=== PATIENT | female | born 1980 | race African-American/Black ===

== ENCOUNTER 2017-02-08 13:06 | Emergency (ER) | payer OTHER ==
[2017-02-08 13:21] VITALS: BP 142/92; PULSE 95; TEMP 98; BMI 33.2
--- NOTE | 2017-02-08 15:04 | PDOC ---
History of Present Illness <Jeovanny Kendall - Last Filed: 02/08/17 15:04> - General History Source: Patient Exam Limitations: No Limitations - History of Present Illness Initial Comments: 02/08/17 16:14 The patient is a 36 year old approximately 19 weeks female, with a significant past medical history of hypertension and fibroids, who presents to the emergency department complaining of elevated blood pressure since earlier this afternoon. Patient states she had been feeling dizzy since the beginning of the week. The patient reports she was at work and began to feel diaphoretic and as if her hearing was foggy. Patient reports this prompted her to ask one of the nurses at her job to take her blood pressure. At this time, the patients bp was 180/110. Patient reports that her GATE SERVICES SUPERVISOR told her to present to the ED if the systolic was over 150. The patient reports some nausea , but denies any abdominal pain or cramping, vaginal discharge, dysuria, hematuria, frequency, or urgency. The patient reports she is compliant with her blood pressure medications. The patient reports occasional palpitations and shortness of breath, but denies chest pain. The patient denies any recent travel or sick contacts. Allergies: NKDA Past Surgical History: None reported Social History: Social smoker. No ETOH or drug use. Family History: Father: Hypertension, Diabetes, [place], CVA; Mother: Cancer GATE SERVICES SUPERVISOR: Dr. Worley Perinatologist: Dr. Shoemaker <Robert Bourne - Last Filed: 02/08/17 16:46> - General Chief Complaint: Blood Pressure Problem Stated Complaint: BLOOD PRESSURE PROBLEM (17 WEEKS) Time Seen by Provider: 02/08/17 14:53 Past History - Past Medical History Disorders: Yes (fibroids) HTN: Yes - Psycho/Social/Smoking Cessation Hx Anxiety: No Suicidal Ideation: No Smoking History: Current some day smoker Have you smoked in the past 12 months: Yes Number of Cigarettes Smoked Daily: 1 Information on smoking cessation initiated: No Hx Alcohol Use: No Drug/Substance Use Hx: No Substance Use Type: Alcohol <Jeovanny Kendall - Last Filed: 02/08/17 15:04> <Robert Bourne - Last Filed: 02/08/17 16:46> - Past Medical History Allergies/Adverse Reactions: Allergies Allergy/AdvReac Type Severity Reaction Status Date / Time No Known Allergies Allergy Verified 02/08/17 13:21 Home Medications: Ambulatory Orders No Home Medications 0 mg PO DAILY 02/06/14 Labetalol HCl [Normodyne -] 200 mg PO BID #60 tablet 02/08/17 Review of Systems - Review of Systems Able to Perform ROS?: Yes Comments:: 02/08/17 16:14 GENERAL/CONSTITUTIONAL:Yes: +diaphoresis. No fever or chills. No weakness. HEAD, EYES, EARS, NOSE AND THROAT: Yes:+Foggy hearing. No change in vision. No ear pain or discharge. No sore throat. CARDIOVASCULAR: Yes:palpitations, +shortness of breath. No chest pain. RESPIRATORY: No cough, wheezing, or hemoptysis. GASTROINTESTINAL: Yes: +Nausea. No vomiting, diarrhea or constipation. GENITOURINARY: No dysuria, frequency, or change in urination. MUSCULOSKELETAL: No joint or muscle swelling or pain. No neck or back pain. SKIN: No rash NEUROLOGIC: Yes: +Headache, +dizziness. No vertigo, loss of consciousness, or change in strength/sensation. ENDOCRINE: No increased thirst. No abnormal weight change. HEMATOLOGIC/LYMPHATIC: No anemia, easy bleeding, or history of blood clots. ALLERGIC/IMMUNOLOGIC: No hives or skin allergy. <Robert Bourne - Last Filed: 02/08/17 16:46> *Physical Exam - Vital Signs Last Vital Signs Temp Pulse Resp BP Pulse Ox 98.0 F 95 H 18 142/92 99 02/08/17 13:18 02/08/17 13:18 02/08/17 13:18 02/08/17 13:18 02/08/17 13:18 <Jeovanny Kendall - Last Filed: 02/08/17 15:04> - Vital Signs Last Vital Signs Temp Pulse Resp BP Pulse Ox 98.0 F 95 H 18 142/92 99 02/08/17 13:18 02/08/17 13:18 02/08/17 13:18 02/08/17 13:18 02/08/17 13:18 - Physical Exam Comments: 02/08/17 16:16 GENERAL: Awake, alert, and fully oriented, in no acute distress HEAD: No signs of trauma EYES: PERRLA, EOMI, sclera anicteric, conjunctiva clear ENT: Auricles normal inspection, hearing grossly normal, nares patent, oropharynx clear without exudates. Moist mucosa NECK: Normal ROM, supple, no lymphadenopathy, JVD, or masses LUNGS: Breath sounds equal, clear to auscultation bilaterally. No wheezes, and no crackles HEART: Regular rate and rhythm, normal S1 and S2, no murmurs, rubs or gallops ABDOMEN: Soft, nontender, normoactive bowel sounds. No guarding, no rebound. No masses EXTREMITIES: Normal range of motion, no edema. No clubbing or cyanosis. No cords, erythema, or tenderness NEUROLOGICAL: Cranial nerves II through XII grossly intact. Normal speech, normal gait SKIN: Warm, Dry, normal turgor, no rashes or lesions noted. <Robert Bourne - Last Filed: 02/08/17 16:46> Heart Score/ECG Review - ECG Intrepretation Comment:: 02/08/17 16:36 Vent Rate: 85 bpm IMPRESSION: Normal Sinus Rhythm. Possible left atrial enlargement. Left ventricular hypertrophy. <Robert Bourne - Last Filed: 02/08/17 16:46> Medical Decision Making - Medical Decision Making 02/08/17 16:[address] Shoemaker and Dr. Worley. Patient will be prescribed labetalol 200 mg bid and to f/u with Dr. Worley on Saturday and Dr. Shoemaker on Saturday. <Robert Bourne - Last Filed: 02/08/17 16:46> *DC/Admit/Observation/Transfer - Attestations Physician Attestion: 02/08/17 15:04 I, Dr. Jeovanny Kendall, attest that this document has been prepared under my direction and personally reviewed by me in its entirety. I further attest, that it accurately reflects all work, treatment, procedures and medical decision -making performed by me. <Jeovanny Kendall - Last Filed: 02/08/17 15:04> - Attestations Scribe Attestion: 02/08/17 16:15 Documentation prepared by Robert Bourne, acting as medical claims manager for Jeovanny Kendall DO. <Robert Bourne - Last Filed: 02/08/17 16:46> Diagnosis at time of Disposition: Hypertension - Discharge Dispostion Disposition: HOME Condition at time of disposition: Stable - Prescriptions Prescriptions: Labetalol HCl [Normodyne -] 200 mg PO BID #60 tablet - Patient Instructions Printed Discharge Instructions: DI for High Blood Pressure Additional Instructions: Follow up with your [facility] Stitcher Hand. Call their offices and make appointments to follow up after this hospital visit. You have been prescribed labetalol 200 mg to take twice a day. If your symptoms worsen come back to the ER.
--- NOTE | 2017-02-08 16:01 | PDOC ---
History of Present Illness - General Chief Complaint: Blood Pressure Problem Stated Complaint: BLOOD PRESSURE PROBLEM (17 WEEKS) Time Seen by Provider: 02/08/17 14:53 History Source: Patient Exam Limitations: No Limitations - History of Present Illness Initial Comments: 36 y/o F w/PMH of HTN presents with high blood pressure. Pt is 17 weeks . Pt had been having headaches not alleviated with tylenol over last 2 days and light-headedness over the last 2 days. This morning she had a "foggy" feeling and checked her blood pressure which was 180/110. She came to the ER as she had been advised to come to ER if she had a sBP greater than 150 by her Ob/ Laboratory Development Technician. Pt has good blister pack operator follow up and sees Product Grader at both woman to woman and with Dr. Young for maternal medicine/high risk . She feels better at this time. Denies visual changes, hearing changes, nausea, vomiting out of the ordinary from her , abd pain, dysuria. Past History - Past Medical History Allergies/Adverse Reactions: Allergies Allergy/AdvReac Type Severity Reaction Status Date / Time No Known Allergies Allergy Verified 02/08/17 13:21 Home Medications: Ambulatory Orders No Home Medications 0 mg PO DAILY 02/06/14 Labetalol HCl [Normodyne -] 200 mg PO BID #60 tablet 02/08/17 Disorders: Yes (fibroids) HTN: Yes - Psycho/Social/Smoking Cessation Hx Anxiety: No Suicidal Ideation: No Smoking History: Current some day smoker Have you smoked in the past 12 months: Yes Number of Cigarettes Smoked Daily: 1 Information on smoking cessation initiated: No Hx Alcohol Use: No Drug/Substance Use Hx: No Substance Use Type: Alcohol Review of Systems - Review of Systems Able to Perform ROS?: Yes Comments:: CONSTITUTIONAL: Absent: fever, no chills, no fatigue EYES: Absent: visual changes 0ENT: Absent: ear pain, no sore throat CARDIOVASCULAR: Absent: chest pain, no palpitations RESPIRATORY: Absent: cough GI: +nausea, vomiting Absent: abdominal pain, no constipation, no diarrhea GENITOURINARY: Absent: dysuria, no frequency, no hematuria SKIN: Absent: rash NEURO: +headache, lightheadedness *Physical Exam - Vital Signs Last Vital Signs Temp Pulse Resp BP Pulse Ox 98.0 F 95 H 18 142/92 99 02/08/17 13:18 02/08/17 13:18 02/08/17 13:18 02/08/17 13:18 02/08/17 13:18 - Physical Exam Comments: GENERAL: Well-appearing, well-nourished. No apparent distress. HEENT: Normocephalic, atraumatic. PERRL, EOM intact. Fundi normal. CARDIOVASCULAR: Normal S1, S2. Regular rate and rhythm. PULMONARY: Clear to auscultation bilaterally. ABDOMEN: Soft, non-distended, non-tender. EXTREMITIES: Normal ROM in all four extremities. No gross deformities. SKIN: Warm, dry. No rash NEUROLOGICAL: No focal neurological deficits. Heart Score/ECG Review - ECG Intrepretation Comment:: NSR @ 85 bpm, LVH QTc [address] segment changes. Medical Decision Making - Medical Decision Making 02/08/17 14:19 Pt feels better at this time. BP is 142/92 in ER. 02/08/17 16:19 EKG NSR w/no ST segment changes Spoke with Dr. Young and Dr. Worley. To be prescribed labetalol 200 mg bid and to f/u with Dr. Worley on Saturday and Dr. Young on Saturday. 02/08/17 16:46 Awaiting UA results Pt was unable to wait and had to leave as her car ride home was waiting and could not wait any longer. Pt has refused to wait for UA results at this time. If there are any significant changes on her UA, will contact her. Pt informed about follow ups needed with Dr. Worley and Dr. Young and about medication that has been prescribed to her. 02/08/17 17:08 UA shows 1+ protein and 3+ blood. Called pt's phone number but there was no answer. 02/08/17 17:14 Called patient and pt answered phone. Informed patient about UA results and to f /u with REFRIGERATION ENGINEER regarding results as well. Pt understood results and instructions. *DC/Admit/Observation/Transfer Diagnosis at time of Disposition: Hypertension - Discharge Dispostion Disposition: HOME Condition at time of disposition: Stable - Prescriptions Prescriptions: Labetalol HCl [Normodyne -] 200 mg PO BID #60 tablet - Patient Instructions Printed Discharge Instructions: DI for High Blood Pressure Additional Instructions: Follow up with your Product Grader. Call their offices and make appointments to follow up after this hospital visit. You have been prescribed labetalol 200 mg to take twice a day. If your symptoms worsen come back to the ER.
[2017-02-08 16:40] LABS: URINE APPEARANCE CLEAR; URINE BILIRUBIN NEGATIVE (NEGATIVE); URINE COLOR LTYELLOW; URINE GLUCOSE (UA) NEGATIVE (NEGATIVE); URINE KETONE NEGATIVE (NEGATIVE); URINE LEUK ESTERASE NEGATIVE (NEGATIVE); URINE NITRITE NEGATIVE (NEGATIVE); URINE UROBILINOGEN NEGATIVE E.U./dl (0.2-1.0)
[2017-02-08 16:53] LABS: URINE BLOOD 3+ (NEGATIVE); URINE PROTEIN 1+ (NEGATIVE)
[2017-02-08 18:08] LABS: URINE MUCUS RARE; URINE RBC 37 /hpf (0-3); URINE WBC 3 /hpf (3-5)
--- NOTE | 2017-02-09 12:11 | EKG ---
Test Reason : Blood Pressure : / mmHG Vent. Rate : 085 BPM Atrial Rate : 085 BPM P-R Int : 122 ms QRS Dur : 088 ms QT Int : 382 ms P-R-T Axes : 033 051 032 degrees QTc Int : 454 ms NORMAL SINUS RHYTHM POSSIBLE LEFT ATRIAL ENLARGEMENT LEFT VENTRICULAR HYPERTROPHY ABNORMAL ECG NO PREVIOUS ECGS AVAILABLE Confirmed by MD SHAWN, HARRY ([id number]) on 02/09/2017 12:10:49 PM Referred By: Confirmed By:HARRY ESCOBAR MD
== END 2017-02-08 16:52 | disposition home or self-care (01) ==
LOC: JER 13:06
DX: O16.2 Unspecified maternal hypertension, second trimester (principal); Z3A.19 19 weeks gestation of pregnancy
CPT/HCPCS: 81003; 81015; 93005; 93010; 99282-25

== ENCOUNTER 2017-02-16 06:26 | Emergency (ER) | payer OTHER ==
[2017-02-16 06:35] VITALS: BMI 28.8
--- NOTE | 2017-02-16 07:43 | PDOC ---
History of Present Illness - General History Source: Patient Exam Limitations: No Limitations - History of Present Illness Initial Comments: 02/16/17 08:03 The patient is a 36-year-old female who is [id number], , with a significant past medical history of HTN and fibroids, who presents to the ED with intermittent right-sided lower abdominal pain that began at 3AM this morning. Pt states that she went to the doctor yesterday where she had a sonogram done. Since then the pt has been experiencing the abdominal pain due to the pressure applied to her stomach. She was not sure if her pain could be attributed to her fibroids or contractions since the pain would come in waves. She reports taking Tylenol but with no relief of her symptoms. The patient denies any fever, chills, nausea, vomiting, or diarrhea. The patient denies any shortness of breath or chest pain. <Deonna Faye - Last Filed: 02/16/17 10:46> <Edelmira Asher - Last Filed: 02/17/17 09:34> - General Chief Complaint: Pain Stated Complaint: ABD PAIN/18 WKS Time Seen by Provider: 02/16/17 07:21 Past History <Deonna Faye - Last Filed: 02/16/17 10:46> - Past Medical History Disorders: Yes (fibroids) HTN: Yes - Immunization History Immunization Up to Date: No - Psycho/Social/Smoking Cessation Hx Anxiety: No Suicidal Ideation: No Smoking History: Never smoked Have you smoked in the past 12 months: Yes Number of Cigarettes Smoked Daily: 1 Information on smoking cessation initiated: No Hx Alcohol Use: No Drug/Substance Use Hx: No Substance Use Type: Alcohol <Edelmira Asher - Last Filed: 02/17/17 09:34> - Past Medical History Allergies/Adverse Reactions: Allergies Allergy/AdvReac Type Severity Reaction Status Date / Time No Known Allergies Allergy Verified 02/16/17 06:35 Home Medications: Ambulatory Orders Labetalol HCl [Normodyne -] 200 mg PO BID #60 tablet 02/08/17 Review of Systems - Review of Systems Able to Perform ROS?: Yes Comments:: 02/16/17 08:03 GENERAL/CONSTITUTIONAL: No fever or chills. No weakness. HEAD, EYES, EARS, NOSE AND THROAT: No change in vision. No ear pain or discharge. No sore throat. CARDIOVASCULAR: No chest pain or shortness of breath. RESPIRATORY: No cough, wheezing, or hemoptysis. GASTROINTESTINAL: No nausea, vomiting, diarrhea or constipation. (+)right-sided lower abdominal pain GENITOURINARY: No dysuria, frequency, or change in urination. MUSCULOSKELETAL: No joint swelling or pain. No neck pain. SKIN: No rash NEUROLOGIC: No headache, vertigo, loss of consciousness, or change in strength/ sensation. ENDOCRINE: No increased thirst. No abnormal weight change. HEMATOLOGIC/LYMPHATIC: No anemia, easy bleeding, or history of blood clots. ALLERGIC/IMMUNOLOGIC: No hives or skin allergy. <Deonna Faye - Last Filed: 02/16/17 10:46> *Physical Exam - Vital Signs Last Vital Signs Temp Pulse Resp BP Pulse Ox 98.1 F 78 19 131/89 98 02/16/17 06:33 02/16/17 06:33 02/16/17 06:33 02/16/17 06:33 02/16/17 06:33 <Deonna Faye - Last Filed: 02/16/17 10:46> - Vital Signs Last Vital Signs Temp Pulse Resp BP Pulse Ox 98.1 F 78 19 131/89 98 02/16/17 06:33 02/16/17 06:33 02/16/17 06:33 02/16/17 06:33 02/16/17 06:33 - Physical Exam Comments: GENERAL: Awake, alert, and fully oriented, in no acute distress. Appears uncomfortable. HEAD: No signs of trauma EYES: PERRLA, EOMI, sclera anicteric, conjunctiva clear ENT: Auricles normal inspection, hearing grossly normal, nares patent, oropharynx clear without exudates. Dry mucosa NECK: Normal ROM, supple, no lymphadenopathy, JVD, or masses LUNGS: Breath sounds equal, clear to auscultation bilaterally. No wheezes, and no crackles HEART: Regular rate and rhythm, normal S1 and S2, no murmurs, rubs or gallops ABDOMEN: Soft, nontender, normoactive bowel sounds. No guarding, no rebound. Gravid uterus with palpable fibroids. EXTREMITIES: Normal range of motion, no edema. No clubbing or cyanosis. No cords, erythema, or tenderness NEUROLOGICAL: Cranial nerves II through XII grossly intact. Normal speech, normal gait SKIN: Warm, Dry, normal turgor, no rashes or lesions noted. <Edelmira Asher - Last Filed: 02/17/17 09:34> ED Treatment Course - LABORATORY CBC & Chemistry Diagram: 02/16/17 07:31 02/16/17 07:31 - ADDITIONAL ORDERS Additional order review: 02/16/17 07:31 RBC 3.46 L MCV 95.6 MCHC 33.8 RDW 13.6 MPV 7.6 D Neutrophils % 70.0 Lymphocytes % 17.4 Monocytes % 6.7 Eosinophils % 5.3 H Basophils % 0.6 - RADIOLOGY Radiology Studies Ordered: 02/16/17 10:46 Obstetrics US was reviewed by Dr. Asher and over-read by Radiology. Impression: Single viable intrauterine gestation at approximately 17 weeks 6 days. Uterine leiomyomas. <Deonna Faye - Last Filed: 02/16/17 10:46> - LABORATORY CBC & Chemistry Diagram: 02/16/17 07:31 02/16/17 07:31 <Edelmira Asher - Last Filed: 02/17/17 09:34> Medical Decision Making - Medical Decision Making Sono results reviewed with patient. She will f/u with her log yard derrick operator. Pain improved with IV tylenol. Stable for DC home. <Edelmira Asher - Last Filed: 02/17/17 09:34> *DC/Admit/Observation/Transfer - Attestations Scribe Attestion: 02/16/17 08:04 Documentation prepared by Deonna Faye, acting as medical director occupational health for Edelmria Asher MD. <Deonna Faye - Last Filed: 02/16/17 10:46> - Discharge Dispostion Admit: No <Edelmira Asher - Last Filed: 02/17/17 09:34> Diagnosis at time of Disposition: Abdominal pain Qualifiers: Abdominal location: unspecified location Qualified Code(s): R10.9 - Unspecified abdominal pain - Discharge Dispostion Disposition: HOME Condition at time of disposition: Improved - Referrals Referrals: Monique Siddiqi MD [Primary Care Provider] - - Patient Instructions Printed Discharge Instructions: DI for -- Discomforts and Remedies
[2017-02-16] MEDS ORDERED: SODIUM CHLORIDE 1,000 ML IV STA (07:54)
[2017-02-16 07:55] LABS: BASOPHIL 0.6 % (0-2.0); EOSINOPHIL 5.3 % (0-4.5); MCH 32.3 pg (25.7-33.7); MCHC 33.8 g/dl (32.0-36.0); MEAN CELL VOLUME 95.6 fl (80-96); MEAN PLT VOLUME 7.6 fl (7.5-11.1); PLATELET COUNT 277 K/MM3 (134-434); RDW 13.6 % (11.6-15.6); WHITE BLOOD COUNT 11.3 K/mm3 (4.0-10.0)
[2017-02-16 08:03] LABS: ANION GAP 10 (8-16); BILIRUBIN,TOTAL 0.1 mg/dL (0.2-1.0); CALCIUM 9.3 mg/dL (8.5-10.1); CO2 20 mmol/L (21-32); CREATININE 0.5 mg/dL (0.55-1.02); GLUCOSE,RANDOM 93 mg/dL (74-106); SGOT/AST 22 U/L (15-37); SGPT/ALT 28 U/L (12-78); TOT PROT 6.7 g/dl (6.4-8.2)
[2017-02-16 08:19] LABS: ALK PHOS 71 U/L (45-117)
[2017-02-16 08:56] LABS: URINE APPEARANCE CLEAR; URINE BILIRUBIN NEGATIVE (NEGATIVE); URINE COLOR LTYELLOW; URINE GLUCOSE (UA) NEGATIVE (NEGATIVE); URINE KETONE NEGATIVE (NEGATIVE); URINE LEUK ESTERASE NEGATIVE (NEGATIVE); URINE NITRITE NEGATIVE (NEGATIVE); URINE PROTEIN NEGATIVE (NEGATIVE); URINE UROBILINOGEN NEGATIVE E.U./dl (0.2-1.0)
[2017-02-16 09:39] LABS: URINE BLOOD 3+ (NEGATIVE)
[2017-02-16] MEDS ORDERED: ACETAMINOPHEN 1000 MG/100 ML VIAL (NON FORMULARY) IVPB ONE (09:43)
[2017-02-16 09:44] LABS: URINE BACTERIA RARE /hpf (NONE SEEN); URINE HYALINE CAST 1 /lpf; URINE MUCUS RARE; URINE RBC 9 /hpf (0-3); URINE WBC 1 /hpf (3-5)
[2017-02-16] MEDS ORDERED: ACETAMINOPHEN INJECTION 100 ML IVPB ONE (11:11)
[2017-02-16 12:04] VITALS: BP 127/83; PULSE 67; TEMP 98
== END 2017-02-16 12:04 | disposition home or self-care (01) ==
LOC: JER 06:26
PROC: 3E0337Z Introduction of Electrolytic and Water Balance Substance into Peripheral Vein, Percutaneous Approach (ICD-10-PCS; principal; 2017-02-16)
PROC: 3E033NZ Introduction of Analgesics, Hypnotics, Sedatives into Peripheral Vein, Percutaneous Approach (ICD-10-PCS; 2017-02-16)
DX: R10.31 Right lower quadrant pain (principal); O34.12 Maternal care for benign tumor of corpus uteri, second trimester; D25.9 Leiomyoma of uterus, unspecified; O16.2 Unspecified maternal hypertension, second trimester; Z3A.17 17 weeks gestation of pregnancy
CPT/HCPCS: 36415; 76801-TC; 80053; 81003; 81015; 83690; 84702; 85025; 96361; 96374; 99282-25

== ENCOUNTER 2017-04-13 18:24 | Emergency (ER) | payer OTHER ==
[2017-04-13 18:31] VITALS: BMI 34.7
[2017-04-13] MEDS ORDERED: DEXTROSE 5%-LACTATED RINGERS 1,000 ML IV ONE (19:05)
[2017-04-13 19:46] VITALS: BP 134/83; PULSE 88; TEMP 98.3
[2017-04-13 20:24] LABS: URINE APPEARANCE CLEAR; URINE BILIRUBIN NEGATIVE (NEGATIVE); URINE BLOOD 2+ (NEGATIVE); URINE COLOR LTYELLOW; URINE GLUCOSE (UA) NEGATIVE (NEGATIVE); URINE KETONE NEGATIVE (NEGATIVE); URINE LEUK ESTERASE NEGATIVE (NEGATIVE); URINE NITRITE NEGATIVE (NEGATIVE); URINE PROTEIN NEGATIVE (NEGATIVE); URINE UROBILINOGEN NEGATIVE mg/dL (0.2-1.0)
[2017-04-13 20:29] LABS: URINE BACTERIA RARE /hpf (NONE SEEN); URINE MUCUS RARE; URINE RBC 4 /hpf (0-3); URINE WBC 2 /hpf (3-5)
== END 2017-04-13 22:25 | disposition home or self-care (01) ==
LOC: JER 18:24
DX: O26.892 Other specified pregnancy related conditions, second trimester (principal); R10.32 Left lower quadrant pain; Z3A.26 26 weeks gestation of pregnancy
CPT/HCPCS: 81003; 81015; 99281-25

== ENCOUNTER 2017-07-09 08:00 | Inpatient (IN) | payer OTHER ==
[2017-07-09 08:53] LABS: BASOPHIL 0.3 % (0-2.0); MCH 32.6 pg (25.7-33.7); MCHC 33.7 g/dl (32.0-36.0); MEAN CELL VOLUME 96.8 fl (80-96); MEAN PLT VOLUME 8.9 fl (7.5-11.1); NEUTROPHILS 70.2 % (42.8-82.8); PLATELET COUNT 202 K/MM3 (134-434); RDW 14.7 % (11.6-15.6); WHITE BLOOD COUNT 8.1 K/mm3 (4.0-10.0)
[2017-07-09 08:58] VITALS: BMI 35.9
[2017-07-09] MEDS ORDERED: DINOPROSTONE 10 MG VAGINAL SUPPOSITORY VG ONE (09:15)
[2017-07-09] MEDS ORDERED: PROMETHAZINE HCL 25 MG/1 ML VIAL IVPUSH ONE (09:17)
[2017-07-09] MEDS ORDERED: BUTORPHANOL TARTRATE 1 MG/ML VIAL IVPB ONE (09:17)
[2017-07-09 09:19] LABS: ANION GAP 9 (8-16); CALCIUM 8.3 mg/dL (8.5-10.1); CO2 20 mmol/L (21-32); CREATININE 0.6 mg/dL (0.55-1.02); GLUCOSE,RANDOM 101 mg/dL (74-106)
[2017-07-09 09:35] LABS: INR 0.91 (0.82-1.09); PROTHROMBIN TIME (PATIENT) 10.3 SEC (9.98-11.88)
[2017-07-09 09:38] LABS: ACTIVATED PTT 25.3 SECONDS (26.9-34.4)
[2017-07-09] MEDS: LABETALOL HCL 200 MG TABLET (FP) PO SCH ×2 (10:28→22:00)
--- NOTE | 2017-07-09 14:27 | HP ---
Past Medical History - Admission History of Present Illness: 36 y/o at 38 weeks 4 days admitted for IOL 2/2 chronic HTN. Pt on Labetalol 200mg po BID with overall controlled BPs. PT had headaches earlier this week and states her BP was elevated with MFM last week but otherwise has been stable. HELLP labs drawn in 3rd trimester WNL. No AMIN/RUQ pain or spots in vision noted today. Pt with h/o X 3 and h/o fibroids. Pt also obese. GBS positive. Had MRSA UTI this X 2, most recent urine culture negative. History Source: Patient, Medical Record Limitations to Obtaining History: No Limitations - Past Medical History Cardiovascular: Yes: HTN Pulmonary: No: Asthma, Sleep Apnea Gastrointestinal: No: GERD Hepatobiliary: No: Hepatitis B, Hepatitis C Renal/: Yes: UTI ...: 6 ...Para: 3 ...Term: 3 ...: 0 ...Spon : 0 ...Induced : 2 ...Multiple Gestation: 0 ...LMP: 10/12/16 ... Weeks Gestation by Dates: 38.4 ...EDC by Dates: 07/19/17 ...EDC by Sono: 07/19/17 Heme/Onc: No: Sickle Cell Disease Infectious Disease: Yes: MRSA. No: HIV Psych: No: Bipolar, Depression Endocrine: No: Diabetes Mellitus, Hyperthyroidism, Hypothyroidism - Past Surgical History Past Surgical History: No: Hx Myomectomy: No Hx Transabdominal Cerclage: No - Smoking History Smoking history: Former smoker Have you smoked in the past 12 months: No Aproximately how many cigarettes per day: 1 - Alcohol/Substance Use Hx Alcohol Use: No History of Substance Use: reports: None - Social History Usual Living Arrangement: Yes: With Significant Other ADL: Independent History of Recent Travel: No Home Medications - Allergies Allergies/Adverse Reactions: Allergies Allergy/AdvReac Type Severity Reaction Status Date / Time No Known Allergies Allergy Verified 07/09/17 08:59 - Home Medications Home Medications: Ambulatory Orders Labetalol HCl [Normodyne -] 200 mg PO BID #60 tablet 02/08/17 Aspirin [ASA -] 81 mg PO DAILY 07/09/17 Pnv95/Ferrous Fumarate/FA [ Vitamin Tablet] 1 each PO DAILY 07/09/17 Review of Systems - Review of Systems Constitutional: reports: No Symptoms Eyes: reports: No Symptoms HENT: reports: No Symptoms Neck: reports: No Symptoms Cardiovascular: reports: No Symptoms Respiratory: reports: No Symptoms Gastrointestinal: reports: No Symptoms Genitourinary: reports: No Symptoms Breasts: reports: No Symptoms Reported Musculoskeletal: reports: No Symptoms Integumentary: reports: No Symptoms Neurological: reports: No Symptoms Endocrine: reports: No Symptoms Hematology/Lymphatic: reports: No Symptoms Psychiatric: reports: No Symptoms Physical Exam - Maternity Vital Signs: Vital Signs Temperature 97.7 F 07/09/17 14:00 Pulse Rate 94 H 07/09/17 14:00 Respiratory Rate 18 07/09/17 14:00 Blood Pressure 138/74 07/09/17 14:00 O2 Sat by Pulse Oximetry (%) Constitutional: Yes: Well Nourished, No Distress, Calm Eyes: Yes: Conjunctiva Clear, EOM Intact HENT: Yes: Atraumatic, Normocephalic Neck: Yes: Supple, Trachea Midline Cardiovascular: Yes: Regular Rate and Rhythm Lungs: Clear to auscultation - Abdominal Exam/OB Fundal Height: 39 Number of Fetuses: Single Presentation: Vertex Contractions: No Monitor Mode: External Category: I Accelerations: Uniform Decelerations: None - Vaginal Exam/OB Vaginal Bleediing: No Dilatation (cm): 0 Effacement (%): 0 Amniotic Membrane Status: Intact Presentation: Vertex/Position Station: -4 - Physical Exam Deep Tendon Reflex Grade: Normal +2 (no clonus) Psychiatric: Yes: Alert, Oriented - Labs Lab Results: CBC, BMP 07/09/17 08:35 07/09/17 08:35 Hemorrhage Risk Assessment - Risk Factors High Risk Factors: Yes: None Risk Score: 0 Risk Level: Low Risk Problem List - Problems (1) Chronic hypertension affecting Code(s): O10.919 - UNSP PRE-EXISTING HTN COMP , UNSP TRIMESTER (2) Antepartum elderly multigravida Code(s): O09.529 - SUPERVISION OF ELDERLY MULTIGRAVIDA, UNSPECIFIED TRIMESTER Assessment/Plan 37 y/o with SIUP at 38.4 weeks, IOL for chronic HTN/AMA -AFVSS - FHTS cat 1 - chronic HTN - BP overall controlled with labetalol, continue PO meds, if BPs elevate will recheck HELLP labs - GBS positive - cervidil placed, for re evaluation in 12 hours - if cervix ripe, will start pitocin, if not will place 2nd cervidil
[2017-07-09] MEDS ORDERED: TUBERCULIN PPD 5 TU/0.1ML SYRINGE (IN PATIENT USE ONLY) ID ONE (19:08)
[2017-07-09] MEDS ORDERED: LABETALOL HCL 200 MG TABLET (FP) PO ONE (19:45)
[2017-07-09] MEDS ORDERED: ACETAMINOPHEN 1000 MG/100 ML VIAL (NON FORMULARY) IVPB ONE (19:45)
[2017-07-09] MEDS: DEXTROSE 5%-LACTATED RINGERS 1,000 ML IV SCH (19:50)
[2017-07-09 20:40] LABS: MCH 32.5 pg (25.7-33.7); MCHC 33.4 g/dl (32.0-36.0); MEAN CELL VOLUME 97.4 fl (80-96); MEAN PLT VOLUME 9.3 fl (7.5-11.1); PLATELET COUNT 200 K/MM3 (134-434); RDW 14.9 % (11.6-15.6); WHITE BLOOD COUNT 7.8 K/mm3 (4.0-10.0)
[2017-07-09 21:15] LABS: URIC ACID 6.4 mg/dL (2.6-7.2)
--- NOTE | 2017-07-09 21:41 | PN ---
Ante-Partal Exam - Subjective Subjective: Pt with contractions will remove cervidil Vital Signs: Vital Signs Temperature 97.7 F 07/09/17 14:00 Pulse Rate 82 07/09/17 21:00 Respiratory Rate 18 07/09/17 21:00 Blood Pressure 130/89 07/09/17 21:00 O2 Sat by Pulse Oximetry (%) - Contractions Contractions: Yes Monitor Mode: External - Exam during Labor Variability: Moderate Category: I Monitor Accelerations: Present Monitor Decelerations: None Exam: Vaginal (cervidil removed) Dilatation (cm): closed Effacement (%): long Presentation: Vertex Station: -2 - Intrapartum Hemorrhage Risk Risk Score: 0 Risk Level: Low Risk - Assessment/Plan Assessment/Plan: HTN Plan 2nd cervidil
[2017-07-09 22:01] LABS: URINE APPEARANCE CLOUDY; URINE BILIRUBIN NEGATIVE (NEGATIVE); URINE BLOOD 1+ (NEGATIVE); URINE COLOR YELLOW; URINE GLUCOSE (UA) NEGATIVE (NEGATIVE); URINE KETONE NEGATIVE (NEGATIVE); URINE NITRITE NEGATIVE (NEGATIVE); URINE PROTEIN NEGATIVE (NEGATIVE); URINE UROBILINOGEN NEGATIVE mg/dL (0.2-1.0)
[2017-07-09 22:04] LABS: URINE BACTERIA RARE /hpf (NONE SEEN); URINE RBC 1 /hpf (0-3); URINE WBC 10 /hpf (3-5)
[2017-07-10] MEDS ORDERED: AMPICILLIN - 2 GM in SODIUM CHLORIDE 100 ML IVPB ONE (02:00)
[2017-07-10] MEDS: AMPICILLIN - 1 GM in SODIUM CHLORIDE 100 ML IVPB SCH ×3 (06:10→14:29)
--- NOTE | 2017-07-10 07:05 | PN ---
Ante-Partal Exam - Subjective Vital Signs: Vital Signs Temperature 98.0 F 07/10/17 04:00 Pulse Rate 99 H 07/10/17 05:00 Respiratory Rate 18 07/10/17 05:00 Blood Pressure 134/88 07/10/17 05:00 O2 Sat by Pulse Oximetry (%) Bleeding: No Headache: No Visual changes: No Right upper quadrant pain: No - Contractions Contractions: Yes Regularity: Regular Intensity: Mild/Mod Monitor Mode: External - Exam during Labor Variability: Moderate Category: I Monitor Decelerations: None Exam: Vaginal Dilatation (cm): closed Effacement (%): 50 Amniotic Membrane Status: Intact Presentation: Vertex Station: -1 - Intrapartum Hemorrhage Risk Risk Score: 0 Risk Level: Low Risk - Assessment/Plan Assessment/Plan: HTN induction Cat 1 Plan will start pitocin
[2017-07-10] MEDS: OXYTOCIN 15 UNITS/ LR 250 ML 250 ML IVPB SCH (08:10)
[2017-07-10] MEDS: ELECTROLYTE-148 SOLN 1,000 ML IV SCH ×2 (08:30→11:37)
[2017-07-10 09:16] LABS: URINE LEUK ESTERASE 1+ (NEGATIVE)
[2017-07-10] MEDS: LABETALOL HCL 200 MG TABLET (FP) PO SCH ×2 (09:56→22:00)
[2017-07-10] MEDS ORDERED: PROMETHAZINE HCL 25 MG/1 ML VIAL IVPUSH ONE (11:08)
[2017-07-10] MEDS ORDERED: BUTORPHANOL TARTRATE 1 MG/ML VIAL IVPUSH ONE (11:08)
--- NOTE | 2017-07-10 17:21 | PN ---
Ante-Partal Exam - Subjective Subjective: Pt s/p pitocin X 8 hours with no cervical change. Pit at 10. Vital Signs: Vital Signs Temperature 97.8 F 07/10/17 14:00 Pulse Rate 87 07/10/17 16:00 Respiratory Rate 20 07/10/17 16:00 Blood Pressure 137/80 07/10/17 16:00 O2 Sat by Pulse Oximetry (%) Bleeding: No Headache: No Visual changes: No Right upper quadrant pain: No - Contractions Contractions: No (contractions stopped without pitocin) Monitor Mode: External - Exam during Labor Heart Rate: 145 Variability: Moderate Category: I Monitor Accelerations: Present Monitor Decelerations: None Exam: Vaginal Dilatation (cm): 0 Effacement (%): 0 Presentation: Vertex Station: -4 - Assessment/Plan Assessment/Plan: 37 y/o with SIUP at 38.5 weeks here for IOL 2/2 chronic HTN. Pt s/p cervidil and pitocin with no cervical change. Cervix still not ripe. Discussed options with patient and pitocin has now been turned off, will reinsert another cervidil overnight tonight to try further cervical ripening and retry pitocin tomorrow. May be candidate for schroeder bulb insertion in morning if able to insert. d/c ampicillin/GBS PPx for now - will restart if becomes active or if SROM cervidil reinserted at this time
[2017-07-10] MEDS ORDERED: DINOPROSTONE 10 MG VAGINAL SUPPOSITORY VG ONE (17:22)
--- NOTE | 2017-07-10 22:42 | PN ---
Ante-Partal Exam - Subjective Subjective: Patient without complaints Vital Signs: Vital Signs Temperature 98.0 F 07/10/17 18:00 Pulse Rate 92 H 07/10/17 21:00 Respiratory Rate 20 07/10/17 21:00 Blood Pressure 116/70 07/10/17 21:00 O2 Sat by Pulse Oximetry (%) Bleeding: No Headache: No Visual changes: No Right upper quadrant pain: No - Contractions Contractions: No Monitor Mode: External - Exam during Labor Heart Rate: 135 Variability: Moderate Category: I Monitor Accelerations: Present Monitor Decelerations: None Exam: Vaginal Dilatation (cm): 1 Effacement (%): 80 Amniotic Membrane Status: Intact Station: -4 - Intrapartum Hemorrhage Risk Medium Risk Factors: None High Risk Factors: None Risk Score: 0 Risk Level: Low Risk - Assessment/Plan Assessment/Plan: 37 yo IOL cHTN 1. BP stable, will monitor 2. Cervidil placed in posterior fornix, patient tolerated well 3. GBS + will start ampicillin in active labor 4. Will offer pain medication upon request 5. Category I FHT
[2017-07-11] MEDS: OXYTOCIN 15 UNITS/ LR 250 ML 250 ML IVPB SCH (08:15)
[2017-07-11] MEDS: ELECTROLYTE-148 SOLN 1,000 ML IV SCH (09:53)
--- NOTE | 2017-07-11 10:06 | PN ---
Ante-Partal Exam - Subjective Subjective: Pt with some cramping overnight. Cervidil removed this a.m. Pt s/p breakfast and shower this a.m. Vital Signs: Vital Signs Temperature 97.8 F 07/11/17 08:00 Pulse Rate 86 07/11/17 09:00 Respiratory Rate 18 07/11/17 09:00 Blood Pressure 124/86 07/11/17 09:00 O2 Sat by Pulse Oximetry (%) Bleeding: No Headache: No Visual changes: No Right upper quadrant pain: No Pain (scale 1-10): 1 - Contractions Contractions: Yes Regularity: Irregular Intensity: Mild Monitor Mode: External - Exam during Labor Heart Rate: 140 Variability: Moderate Category: I Monitor Decelerations: None Exam: Vaginal Dilatation (cm): 1 Effacement (%): 50 Amniotic Membrane Status: Intact Presentation: Vertex Station: -4 - Intrapartum Hemorrhage Risk Medium Risk Factors: None High Risk Factors: None Risk Score: 0 Risk Level: Low Risk - Assessment/Plan Assessment/Plan: 37 y/o with SIUP at 38.6 weeks IOL for cHTN - FHTs reactive, category 1 - cHTN - BPS overall normal or in the mild range - continue labetalol 200mg BID - s/p cervidil X 2 as well as pitocin yesterday, will attempt schroeder balloon catheter placement and restarting pitocin today - will keep NPO - GBS positive, will start ampicillin once ROM or active labor
[2017-07-11] MEDS: LABETALOL HCL 200 MG TABLET (FP) PO SCH ×2 (10:15→22:00)
[2017-07-11] MEDS: DEXTROSE 5%-LACTATED RINGERS 1,000 ML IV SCH (10:30)
[2017-07-11] MEDS ORDERED: OXYTOCIN 15 UNITS/ LR 250 ML 250 ML IVPB SCH (10:45)
[2017-07-11] MEDS ORDERED: PROMETHAZINE HCL 25 MG/1 ML VIAL IVPUSH ONE ×2 (11:23→23:45)
[2017-07-11] MEDS ORDERED: BUTORPHANOL TARTRATE 1 MG/ML VIAL IVPUSH ONE ×2 (11:23→23:45)
--- NOTE | 2017-07-11 11:23 | PN ---
Ante-Partal Exam - Subjective Subjective: attempt at schroeder balloon placement failed Vital Signs: Vital Signs Temperature 97.8 F 07/11/17 08:00 Pulse Rate 90 07/11/17 10:00 Respiratory Rate 18 07/11/17 10:00 Blood Pressure 150/90 07/11/17 10:00 O2 Sat by Pulse Oximetry (%) Bleeding: Yes Bleeding Description: Mild Headache: No Visual changes: No Right upper quadrant pain: No Pain (scale 1-10): 2 - Contractions Contractions: No Monitor Mode: External - Exam during Labor Heart Rate: 140 Variability: Moderate Category: I Monitor Accelerations: Present Exam: Vaginal Dilatation (cm): 2 Effacement (%): 50 Amniotic Membrane Status: Intact Presentation: Vertex Station: -4 - Assessment/Plan Assessment/Plan: attempt at schroeder balloon placement failed cevix now 2cm and soft will start pitocin
[2017-07-12] MEDS: ELECTROLYTE-148 SOLN 1,000 ML IV SCH (09:40)
[2017-07-12] MEDS: LABETALOL HCL 200 MG TABLET (FP) PO SCH ×2 (09:44→21:25)
[2017-07-12] MEDS ORDERED: CITRIC ACID/SODIUM CITRATE 30 ML UNIT-DOSE CUP PO ONE (10:00)
[2017-07-12] MEDS ORDERED: oxyCODONE HCL 5 MG TABLET PO PRN (10:27)
[2017-07-12] MEDS ORDERED: ELECTROLYTE-148 SOLN 1,000 ML IV SCH (10:30)
--- NOTE | 2017-07-12 10:45 | PN ---
Ante-Partal Exam - Subjective Subjective: Pt on pitocin since 10am yesterday, no cervical change. Pitocin as been turned off. Pt requesting delivery. Vital Signs: Vital Signs Temperature 98.0 F 07/12/17 10:00 Pulse Rate 86 07/12/17 10:00 Respiratory Rate 20 07/12/17 10:00 Blood Pressure 159/89 07/12/17 10:00 O2 Sat by Pulse Oximetry (%) Bleeding: No Headache: No Visual changes: No Right upper quadrant pain: No Pain (scale 1-10): 0 - Contractions Contractions: No Regularity: Irregular Monitor Mode: External - Exam during Labor Heart Rate: 145 Variability: Moderate Category: I Monitor Accelerations: Present Monitor Decelerations: None Exam: Vaginal Dilatation (cm): 2 Effacement (%): 50 Amniotic Membrane Status: Intact Station: -4 - Assessment/Plan Assessment/Plan: 37 with SIUP at 39 weeks, IOL for cHTN - failed induction - FHTS cat 1 - discussed options with patient including discharge and restarting induction in 48-72 hours vs delivery - pt desires delivery - nursing and anesthesia aware - schroeder catheter placement, shave, preop antibiotics
--- NOTE | 2017-07-12 12:22 | OP ---
Operative Note - Note: Operative Date: 07/12/17 Pre-Operative Diagnosis: failed induction of labor, chronic HTN, desire for permanent sterilization Operation: primary delivery, bilateral tubal ligation Findings: large bulky fibroid uterus Surgeon: Rosa Worley Folder Taper Operator: Kun Long Anesthesiologist/ELECTRO MECHANICAL ASSEMBLER: oMshe Coello Anesthesia: Spinal Specimens Removed: placenta, cord blood Estimated Blood Loss (mls): 1,000 Operative Report Dictated: Yes
[2017-07-12] MEDS ORDERED: LABETALOL HCL 200 MG TABLET (FP) PO ONE (12:25)
[2017-07-12] MEDS ORDERED: ONDANSETRON 4 MG/2 ML VIAL IVPUSH PRN (12:32)
[2017-07-12] MEDS ORDERED: morphine SULFATE/Preservative Free 0.5 MG/ML (1cc Syringe) SPIN ONE (12:32)
[2017-07-12] MEDS: IBUPROFEN 800 MG/8 ML IJ IVPB PRN ×2 (13:20→20:57)
[2017-07-12] MEDS ORDERED: HYDROmorphone HCL CARPU-JECT 1 MG/1 ML DISP.SYRIN IVPB PRN (13:25)
[2017-07-12] MEDS: OXYTOCIN 20 UNITS in 0.9% NS 1,000 ML IV SCH (14:15)
[2017-07-12 14:20] LABS: BASOPHIL 0.4 % (0-2.0); EOSINOPHIL 0.7 % (0-4.5); MCHC 32.1 g/dl (32.0-36.0); MEAN CELL VOLUME 99.5 fl (80-96); MEAN PLT VOLUME 9.6 fl (7.5-11.1); NEUTROPHILS 76.5 % (42.8-82.8); PLATELET COUNT 175 K/MM3 (134-434); RDW 14.7 % (11.6-15.6); WHITE BLOOD COUNT 7.2 K/mm3 (4.0-10.0)
[2017-07-12 14:23] LABS: URINE APPEARANCE CLEAR; URINE BILIRUBIN NEGATIVE (NEGATIVE); URINE BLOOD 2+ (NEGATIVE); URINE COLOR LTYELLOW; URINE GLUCOSE (UA) NEGATIVE (NEGATIVE); URINE KETONE NEGATIVE (NEGATIVE); URINE NITRITE NEGATIVE (NEGATIVE); URINE UROBILINOGEN NEGATIVE mg/dL (0.2-1.0)
[2017-07-12 14:28] LABS: URINE PROTEIN 1+ (NEGATIVE)
[2017-07-12 14:35] LABS: URINE MUCUS RARE; URINE RBC 24 /hpf (0-3); URINE WBC 5 /hpf (3-5)
[2017-07-12 14:40] LABS: URIC ACID 6.5 mg/dL (2.6-7.2)
[2017-07-12 20:05] LABS: URINE LEUK ESTERASE Negative (NEGATIVE)
[2017-07-13] MEDS: OXYTOCIN 20 UNITS in 0.9% NS 1,000 ML IV SCH ×2 (00:15→10:49)
[2017-07-13] MEDS: FERROUS SO4 325 MG TABLET (FP) PO SCH ×3 (02:55→21:27)
[2017-07-13] MEDS: IBUPROFEN 800 MG/8 ML IJ IVPB PRN (05:09)
[2017-07-13] MEDS: SIMETHICONE 80 MG TAB.CHEW (FP) PO PRN ×4 (08:23→20:13)
[2017-07-13] MEDS: ACETAMINOPHEN 325 MG TABLET (FP) PO PRN ×4 (08:23→20:12)
[2017-07-13 08:50] LABS: BASOPHIL 0.3 % (0-2.0); EOSINOPHIL 0.5 % (0-4.5); MCH 32.3 pg (25.7-33.7); MCHC 32.8 g/dl (32.0-36.0); MEAN CELL VOLUME 98.7 fl (80-96); MEAN PLT VOLUME 9.4 fl (7.5-11.1); NEUTROPHILS 78.5 % (42.8-82.8); PLATELET COUNT 174 K/MM3 (134-434); RDW 14.7 % (11.6-15.6); WHITE BLOOD COUNT 9.4 K/mm3 (4.0-10.0)
--- NOTE | 2017-07-13 09:46 | PN ---
Post Progress Note Type of Delivery: Primary C/S Vital Signs: Vital Signs Temperature 97.6 F 07/13/17 09:27 Pulse Rate 72 07/13/17 09:27 Respiratory Rate 20 07/13/17 09:27 Blood Pressure 144/98 07/13/17 09:27 O2 Sat by Pulse Oximetry (%) 100 07/12/17 14:00 Breast Exam: Yes: Soft Uterus: Yes: Fundus below umbilicus Incision: Yes: Dressing dry and intact Abdomen/GI: Yes: Passing flatus Lochia: Yes: Rubra Lochia, amount: Moderate Extremities: Yes: Calves non-tender Perineum: Yes: Intact Activity: Ambulating - Labs Labs: CBC WBC 9.4 K/mm3 (4.0-10.0) D 07/13/17 07:45 RBC 2.92 M/mm3 (3.60-5.2) L 07/13/17 07:45 Hgb 9.5 GM/dL (10.7-15.3) L 07/13/17 07:45 Hct 28.8 % (32.4-45.2) L 07/13/17 07:45 MCV 98.7 fl (80-96) H 07/13/17 07:45 MCH 32.3 pg (25.7-33.7) 07/13/17 07:45 MCHC 32.8 g/dl (32.0-36.0) 07/13/17 07:45 RDW 14.7 % (11.6-15.6) 07/13/17 07:45 Plt Count 174 K/MM3 (134-434) 07/13/17 07:45 MPV 9.4 fl (7.5-11.1) 07/13/17 07:45 Neutrophils % 78.5 % (42.8-82.8) 07/13/17 07:45 Lymphocytes % 13.5 % (8-40) D 07/13/17 07:45 Monocytes % 7.2 % (3.8-10.2) 07/13/17 07:45 Eosinophils % 0.5 % (0-4.5) 07/13/17 07:45 Basophils % 0.3 % (0-2.0) 07/13/17 07:45 Retic Count 2.87 % (0.5-1.5) H 07/09/17 20:00 Haptoglobin 114 mg/dL (34-200) 07/09/17 20:00
[2017-07-13] MEDS: LABETALOL HCL 200 MG TABLET (FP) PO SCH ×2 (10:48→21:23)
[2017-07-13] MEDS: PRENATAL VITAMINS W/ FOLIC ACID TABLET (FP) PO SCH (10:49)
[2017-07-13] MEDS: ELECTROLYTE-148 SOLN 1,000 ML IV SCH (10:50)
[2017-07-13] MEDS: oxyCODONE HCL 5 MG TABLET PO PRN ×2 (11:28→16:41)
[2017-07-13] MEDS ORDERED: FLU VACC QS2017-18 36MOS UP/PF 60 MCG/0.5 ML SYRINGE IM ONE (12:00)
[2017-07-13] MEDS ORDERED: DIPHTH,PERTUSS(ACELL),TET 0.5 ML DISP.SYRIN IM ONE (12:00)
--- NOTE | 2017-07-13 17:50 | PN ---
Progress Note (short form) - Note Progress Note: Anesthesia post op note, S/P , POD#1. Pat seen and examined. VSS. No post anesthesia complications.Signed off.
[2017-07-13] MEDS: IBUPROFEN 600 MG TABLET (FP) PO PRN (20:13)
[2017-07-13] MEDS: SENNOSIDES/DOCUSATE COMBO (SENNA PLUS) TABLET (UD) PO PRN (21:24)
[2017-07-14] MEDS: ACETAMINOPHEN 325 MG TABLET (FP) PO PRN ×5 (02:21→21:01)
[2017-07-14] MEDS: SIMETHICONE 80 MG TAB.CHEW (FP) PO PRN ×5 (02:22→21:02)
[2017-07-14] MEDS: IBUPROFEN 600 MG TABLET (FP) PO PRN (02:22)
[2017-07-14] MEDS: oxyCODONE HCL 5 MG TABLET PO PRN ×5 (02:26→21:02)
--- NOTE | 2017-07-14 07:20 | PN ---
Post Progress Note - Subjective Subjective: Pt seen/evaluated today. Feeling well. Pain controlled, tolerating diet, ambulating and voiding. Pt with chronic HTN, on labetalol 200 BID, BPS have been overall in mild range. Max BP overnight 159/100. Will monitor, may need to increase dose of medication if remains high. Type of Delivery: Primary C/S Vital Signs: Vital Signs Temperature 98.1 F 07/14/17 05:55 Pulse Rate 81 07/14/17 05:55 Respiratory Rate 20 07/14/17 05:55 Blood Pressure 136/83 07/14/17 05:55 O2 Sat by Pulse Oximetry (%) 100 07/12/17 14:00 Breast Exam: Yes: Soft Uterus: Yes: Fundus above umbilicus (2/2 enlarged fibroid uterus) Incision: Yes: Sutures intact Abdomen/GI: Yes: Abdomen soft, Tender, Passing flatus, Tolerating PO. No: Abdominal Distention Lochia: Yes: Rubra Lochia, amount: Small Extremities: Yes: Calves non-tender. No: Edema Perineum: Yes: Intact Activity: Ambulating - Labs Labs: CBC WBC 9.4 K/mm3 (4.0-10.0) D 07/13/17 07:45 RBC 2.92 M/mm3 (3.60-5.2) L 07/13/17 07:45 Hgb 9.5 GM/dL (10.7-15.3) L 07/13/17 07:45 Hct 28.8 % (32.4-45.2) L 07/13/17 07:45 MCV 98.7 fl (80-96) H 07/13/17 07:45 MCH 32.3 pg (25.7-33.7) 07/13/17 07:45 MCHC 32.8 g/dl (32.0-36.0) 07/13/17 07:45 RDW 14.7 % (11.6-15.6) 07/13/17 07:45 Plt Count 174 K/MM3 (134-434) 07/13/17 07:45 MPV 9.4 fl (7.5-11.1) 07/13/17 07:45 Neutrophils % 78.5 % (42.8-82.8) 07/13/17 07:45 Lymphocytes % 13.5 % (8-40) D 07/13/17 07:45 Monocytes % 7.2 % (3.8-10.2) 07/13/17 07:45 Eosinophils % 0.5 % (0-4.5) 07/13/17 07:45 Basophils % 0.3 % (0-2.0) 07/13/17 07:45 Retic Count 2.87 % (0.5-1.5) H 07/09/17 20:00 Haptoglobin 114 mg/dL (34-200) 07/09/17 20:00 Problem List - Problems (1) Chronic hypertension affecting Code(s): O10.919 - UNSP PRE-EXISTING HTN COMP , UNSP TRIMESTER (2) Antepartum elderly multigravida Code(s): O09.529 - SUPERVISION OF ELDERLY MULTIGRAVIDA, UNSPECIFIED TRIMESTER (3) Leiomyoma in , uterine, antepartum Code(s): O34.10 - MATERNAL CARE FOR BENIGN TUMOR OF CORPUS UTERI, UNSP TRI D25.9 - LEIOMYOMA OF UTERUS, UNSPECIFIED Assessment/Plan 37 y/o POD 2 s/p primary delivery, cHTN -AFebrile - mildly elevated BPs overnight, will monitor, asymptomatic. Labs normal X 2 ( for HELLP). Will adjust meds as needed - regular diet, PO pain meds, encourage ambulation - SCDs while in bed
--- NOTE | 2017-07-14 08:33 | OP ---
DATE OF OPERATION: 07/12/2017 PREOPERATIVE DIAGNOSES: Failed induction of labor and chronic hypertension; term . POSTOPERATIVE DIAGNOSES: Failed induction of labor and chronic hypertension; term . PROCEDURE: Primary low transverse delivery and bilateral tubal ligation (patience). SURGEON: Rosa Tapia DO ASSOCIATE DENTIST: Kun Long PA-C ANESTHESIA: Spinal given by Moshe Coello MD. ESTIMATED BLOOD LOSS: 1000 mL. FINDINGS: Large fibroid uterus. SPECIMENS REMOVED: Placenta, portion of bilateral fallopian tubes. COMPLICATIONS: None. DISPOSITION: Stable to PACU. SPONGE/NEEDLE/INSTRUMENT COUNT: Reported to be correct. BRIEF HISTORY AND PROCEDURE: The patient is a 37-year-old female who was admitted to [facility] on July 09, 2017, for induction of labor secondary to chronic hypertension. After approximately 72 hours of induction attempt, the patient was not in labor and, at that point, the plan was made to proceed with a primary delivery. The consents were signed for the procedure. The patient was then taken back to the operating room, where she was given spinal anesthesia and placed in the dorsal supine position. A Russ catheter was placed under sterile conditions. She was prepped and draped in the usual sterile fashion and a hard timeout was performed. A Pfannenstiel skin incision was created in the skin using a scalpel and carried to the underlying layer of rectus fascia with the Bovie. The fascia was incised on either side of the midline with the Bovie and the fascial incision was carried in a superolateral direction with the Bovie. The fascia was tented upward and dissected off the underlying layer of rectus muscle with the Bovie. The rectus muscle was then retracted laterally and the peritoneum was entered bluntly to allow for adequate room for delivery. The bladder blade was then placed to protect the bladder and a transverse incision was created in the lower uterine segment, which was extended in a superolateral direction bluntly. The head was then delivered from the left occiput transverse position without difficulty, along with the shoulders and remainder of the . The cord was clamped twice and cut in between after a brief 30-second delayed cord clamping. Placenta was then delivered intact and manually extracted. The uterus was then exteriorized from the abdomen and several large fibroids were noted on the anterior and posterior aspect of the uterus intramurally. The uterus remained approximately 22 weeks in size after involution. Hysterotomy was approximated in double-layer closure in a running locked fashion initially with 1 Vicryl suture and the 2nd imbricating layer with 0 Biosyn suture. The patient had signed consent for bilateral tubal ligation, as she did not desire any future childbearing. The right fallopian tube was identified and traced to its fimbriated end. The midportion of the tube was elevated and an approximately 2 to 3-cm portion of the tube was tied off and excised and sent to pathology for permanent evaluation. The same was repeated on the left side. The uterus was then placed back into the abdomen. Bilateral gutters were inspected and cleared of all debris. Hysterotomy site was noted to be hemostatic. The bilateral fallopian tube sites were noted to be hemostatic. A small amount of venous bleeding was noted on the left fallopian tube as well as the hysterotomy at this time. A piece of Surgicel was placed over the hysterotomy as well as over the left fallopian tube where the ligation had occurred. Pressure was held until hemostasis was achieved. Next, the peritoneum was closed with 2-0 chromic in a running fashion. The musculature was reapproximated with a single interrupted suture using 2-0 chromic. The fascia was reapproximated using 1 Vicryl in a running fashion. Subcutaneous tissue was irrigated and reapproximated with interrupted sutures and the skin was reapproximated using subcuticular sutures. Sponge, needle and instrument counts were reported to be correct at the end of the case. The patient tolerated the procedure well, is recovering in stable condition in the PACU after the procedure. ROSA TAPIA DO /[id number] [facility]ITALCourt
[2017-07-14] MEDS: ENOXAPARIN NA (PORCINE) 40 MG/0.4 ML DISP.SYRIN SQ SCH (09:37)
[2017-07-14] MEDS: LABETALOL HCL 200 MG TABLET (FP) PO SCH ×2 (09:37→21:45)
[2017-07-14] MEDS: PRENATAL VITAMINS W/ FOLIC ACID TABLET (FP) PO SCH (09:37)
[2017-07-14] MEDS: FERROUS SO4 325 MG TABLET (FP) PO SCH ×2 (10:13→21:45)
[2017-07-14] MEDS: ELECTROLYTE-148 SOLN 1,000 ML IV SCH (10:14)
[2017-07-14] MEDS: BISACODYL 10 MG SUPP.RECT RC PRN (11:00)
[2017-07-14] MEDS: OXYTOCIN 20 UNITS in 0.9% NS 1,000 ML IV SCH (22:38)
[2017-07-15] MEDS: oxyCODONE HCL 5 MG TABLET PO PRN ×5 (01:14→19:56)
[2017-07-15] MEDS: ACETAMINOPHEN 325 MG TABLET (FP) PO PRN ×5 (01:14→19:57)
[2017-07-15] MEDS: SIMETHICONE 80 MG TAB.CHEW (FP) PO PRN ×5 (01:15→19:57)
[2017-07-15 07:40] LABS: BASOPHIL 0.4 % (0-2.0); EOSINOPHIL 1.6 % (0-4.5); MCHC 33.4 g/dl (32.0-36.0); MEAN CELL VOLUME 95.8 fl (80-96); NEUTROPHILS 69.3 % (42.8-82.8); PLATELET COUNT 223 K/MM3 (134-434); RDW 14.2 % (11.6-15.6); WHITE BLOOD COUNT 6.5 K/mm3 (4.0-10.0)
--- NOTE | 2017-07-15 09:46 | PN ---
Post Progress Note - Subjective Subjective: Pt seen/evaluated. Doing well. Ambulating, voiding, passing flatus and BM. Tolerating regular diet. Pt denies AMIN/RUQ pain or changes in vision. No other complaints. Type of Delivery: Primary C/S Vital Signs: Vital Signs Temperature 98.8 F 07/15/17 05:09 Pulse Rate 79 07/15/17 05:09 Respiratory Rate 20 07/15/17 05:09 Blood Pressure 148/83 07/15/17 05:09 O2 Sat by Pulse Oximetry (%) 100 07/12/17 14:00 Breast Exam: Yes: Soft Uterus: Yes: Fundus Firm, Fundus above umbilicus (2/2 large fibroid uterus) Abdomen/GI: Yes: Tender, Passing flatus, Tolerating PO. No: Abdominal Distention Lochia: Yes: Rubra Lochia, amount: Small Extremities: Yes: Calves non-tender, Edema (+1 nonpitting edema in LE B/L) Perineum: Yes: Intact Activity: Ambulating - Labs Labs: CBC WBC 6.5 K/mm3 (4.0-10.0) D 07/15/17 07:00 RBC 2.78 M/mm3 (3.60-5.2) L 07/15/17 07:00 Hgb 8.9 GM/dL (10.7-15.3) L 07/15/17 07:00 Hct 26.6 % (32.4-45.2) L 07/15/17 07:00 MCV 95.8 fl (80-96) 07/15/17 07:00 MCH 32.0 pg (25.7-33.7) 07/15/17 07:00 MCHC 33.4 g/dl (32.0-36.0) 07/15/17 07:00 RDW 14.2 % (11.6-15.6) 07/15/17 07:00 Plt Count 223 K/MM3 (134-434) D 07/15/17 07:00 MPV 8.0 fl (7.5-11.1) D 07/15/17 07:00 Neutrophils % 69.3 % (42.8-82.8) 07/15/17 07:00 Lymphocytes % 20.5 % (8-40) D 07/15/17 07:00 Monocytes % 8.2 % (3.8-10.2) 07/15/17 07:00 Eosinophils % 1.6 % (0-4.5) D 07/15/17 07:00 Basophils % 0.4 % (0-2.0) 07/15/17 07:00 Retic Count 2.87 % (0.5-1.5) H 07/09/17 20:00 Haptoglobin 114 mg/dL (34-200) 07/09/17 20:00 Problem List - Problems (1) Chronic hypertension affecting Code(s): O10.919 - UNSP PRE-EXISTING HTN COMP , UNSP TRIMESTER (2) Antepartum elderly multigravida Code(s): O09.529 - SUPERVISION OF ELDERLY MULTIGRAVIDA, UNSPECIFIED TRIMESTER (3) Leiomyoma in , uterine, antepartum Code(s): O34.10 - MATERNAL CARE FOR BENIGN TUMOR OF CORPUS UTERI, UNSP TRI D25.9 - LEIOMYOMA OF UTERUS, UNSPECIFIED Assessment/Plan 37 y/o POD 3 s/p primary delivery, cHTN -AFebrile - mildly elevated BPs since delivery, will monitor, asymptomatic. HELLP Labs normal X 2. Will adjust meds as needed if BP goes above mild range. Otherwise to remain on labetalol 200 BID at this time. - regular diet, PO pain meds, encourage ambulation - SCDs while in bed
[2017-07-15] MEDS: PRENATAL VITAMINS W/ FOLIC ACID TABLET (FP) PO SCH (09:56)
[2017-07-15] MEDS: LABETALOL HCL 200 MG TABLET (FP) PO SCH (09:56)
[2017-07-15] MEDS: ENOXAPARIN NA (PORCINE) 40 MG/0.4 ML DISP.SYRIN SQ SCH (09:57)
[2017-07-15] MEDS: FERROUS SO4 325 MG TABLET (FP) PO SCH ×3 (10:04→21:36)
[2017-07-15] MEDS: BISACODYL 10 MG SUPP.RECT RC PRN (10:30)
[2017-07-15] MEDS ORDERED: oxyCODONE HCL 5 MG TABLET PO PRN (12:44)
[2017-07-15] MEDS ORDERED: LABETALOL HCL 200 MG TABLET (FP) PO ONE (14:40)
[2017-07-15] MEDS ORDERED: LABETALOL HCL 200 MG TABLET (FP) PO SCH (14:41)
[2017-07-15] MEDS: SENNOSIDES/DOCUSATE COMBO (SENNA PLUS) TABLET (UD) PO PRN (21:35)
[2017-07-15] MEDS ORDERED: LABETALOL HCL 100 MG TABLET (FP) PO SCH (22:00)
[2017-07-16] MEDS: oxyCODONE HCL 5 MG TABLET PO PRN ×3 (00:58→11:38)
[2017-07-16] MEDS: ACETAMINOPHEN 325 MG TABLET (FP) PO PRN ×3 (00:59→11:39)
[2017-07-16] MEDS: SIMETHICONE 80 MG TAB.CHEW (FP) PO PRN ×2 (05:44→11:39)
[2017-07-16] MEDS: PRENATAL VITAMINS W/ FOLIC ACID TABLET (FP) PO SCH (09:16)
[2017-07-16] MEDS: ENOXAPARIN NA (PORCINE) 40 MG/0.4 ML DISP.SYRIN SQ SCH (09:17)
[2017-07-16] MEDS ORDERED: LABETALOL HCL 200 MG TABLET (FP) PO SCH (10:00)
--- NOTE | 2017-07-16 10:05 | DS ---
Physical Exam-DOCK SUPERINTENDENT Vital Signs: Vital Signs Temperature 98.1 F 07/16/17 06:00 Pulse Rate 76 07/16/17 06:00 Respiratory Rate 20 07/16/17 06:00 Blood Pressure 147/95 07/16/17 06:00 O2 Sat by Pulse Oximetry (%) 100 07/12/17 14:00 Constitutional: Yes: Well Nourished, No Distress, Calm Eyes: Yes: Conjunctiva Clear, EOM Intact HENT: Yes: Atraumatic, Normocephalic Neck: Yes: Supple, Trachea Midline Cardiovascular: Yes: Regular Rate and Rhythm Respiratory: Yes: Regular, CTA Bilaterally Gastrointestinal: Yes: Normal Bowel Sounds, Soft Uterus: Yes: Enlarged Extremities: Yes: WNL Edema: No Wound/Incision: Yes: Clean/Dry, Well Approximated Neurological: Yes: Alert, Oriented Psychiatric: Yes: Alert, Oriented Labs: CBC, BMP 07/15/17 07:00 07/12/17 13:40 Delivery - Delivery Section: Primary, Low Flap Transverse Type of Anesthesia: Spinal Episiotomy/Laceration: None EBL (cc): 1,000 Delivery, Single - Stages of Labor Date of Delivery: 07/12/17 Time of Delivery: 11:23 Time Placenta Delivered: 11:24 - Condition of Study Hall Supervisor/Validation Technician Present: Yes Name: Al Cool Gender: Female Weight: 7 lb 5 oz Position: Left, OT Total Hours ROM (Hrs/Mins): 0/2 - 1 Minute Total Score: 9 5 Minutes Total Score: 9 - Feeding Plan Initial Plan: Elected not to breastfeed exclusively throughout hospitalization Discharge Summary Reason For Visit: INDUCTION OF LABOR Current Active Problems Antepartum elderly multigravida (Acute) Chronic hypertension affecting (Acute) Leiomyoma in , uterine, antepartum (Acute) Hospital Course: Pt was admitted to [facility] on 07/09 for induction of labor for chronic hypertension. THe patient underwent several days at attempt at cervical dilation/ripening and on 07/12/2017 after failed induction of labor underwent a primary delivery and bilateral tubal ligation. During the procedure the patient was found to have a very enlarged fibroid uterus. The procedure otherwise was uncomplicated. The patient had a post course complicated by elevated blood pressures and the patient's Labetalol was adjusted accordingly. THe patient was discharged home on 07/16 with mild range blood pressures and strict instructions to call with any headaches, upper abdominal pain or spots/changes in vision. She will make an appointment to be seen in the office in 48-72 hours after discharge for a blood pressure check. She understands these instructions and was discharged home with Labetalol 400mg BID. Condition: Good - Instructions Diet, Activity, Other Instructions: Physical activity Resume your normal everyday activity as tolerated no heavy lifting or exercise until seen by your surgeon. You may walk unlimited amounts and climb stairs. You may resume driving the car when you feel safe and comfortable behind the wheel. No sexual activity as instructed. Wound care If there are tapes on the skin leave them in place. They will peel off in the next 7 to 10 days. Do Not Peel them off. You may shower the day after surgery. If there are tapes present on the skin, you may shower over them. Diet There are no dietary restrictions. Eat healthy, high-fiber foods. Drink 6 to 8 glasses of liquid each day. This will assist in keeping your bowels regular. Pain management You may take Tylenol (for example, Motrin, Advil etc.) for mild pain. IF any prescription medication is sent to your pharmacy please take for moderate to severe pain as directed. Call MD for any of the following: Severe pain not relieved by medication Fever of 101 or higher Excessive bleeding or drainage on dressing Inability to urinate Headaches, changes or spots in your vision, upper abdominal pain Call Dr. Worley and make appt..to be seen this , 07/18/17 or Saturday, . Referrals: Rosa Worley DO [Staff Physician] - Disposition: HOME - Home Medications Comprehensive Discharge Medication List: Ambulatory Orders Labetalol HCl [Normodyne -] 200 mg PO BID #60 tablet 02/08/17 Aspirin [ASA -] 81 mg PO DAILY 07/09/17 Pnv95/Ferrous Fumarate/FA [ Vitamin Tablet] 1 each PO DAILY 07/09/17 Ferrous Sulfate [Feosol] 325 mg PO BID #60 tablet 07/16/17 Labetalol HCl [Normodyne -] 400 mg PO BID #60 tablet 07/16/17 Oxycodone HCl/Acetaminophen [Percocet 5-325 mg Tablet -] 1 - 2 tab PO Q6H #30 tablet MDD 8 07/16/17
[2017-07-16] MEDS: FERROUS SO4 325 MG TABLET (FP) PO SCH (10:16)
[2017-07-16 11:46] VITALS: BP 152/99; PULSE 75; TEMP 98.9
--- NOTE | 2017-07-17 16:01 | PATH ---
Surgical Pathology Report Patient Name: JASMIN OAKLEY Med. Rec. #: [id number] /Age/Gender: 1980 (Age: 37) / F Account: [id number] Location: [facility] OBS/MANAGER REPORTING Taken: 07/12/2017 Received: 07/15/2017 Reported: 07/17/2017 Physicians: Rosa Worley M.D. Specimen(s) Received A: PLACENTA B: PORTION OF LEFT FALLOPIAN TUBE C: PORTION OF RIGHT FALLOPIAN TUBE Clinical History A , 39 weeks x3, failed induction, chronic hypertension Final Diagnosis A. PLACENTA, SECTION: THIRD TRIMESTER PLACENTA (593 g) WITH TRIVASCULAR UMBILICAL CORD AND UNREMARKABLE PLACENTAL MEMBRANES. B. FALLOPIAN TUBE, LEFT, PARTIAL EXCISION: FULL LUMINAL PORTION OF UNREMARKABLE FALLOPIAN TUBE. C. FALLOPIAN TUBE, RIGHT, PARTIAL EXCISION: FULL LUMINAL PORTION OF UNREMARKABLE FALLOPIAN TUBE. Electronically Signed Radha Gutiérrez M.D. Gross Description A. The specimen is received fresh labeled placenta and is a 593 gram, 18.0 x 14.5 x 2.8 cm. placenta with attached membranes and umbilical cord. The attached membranes are calvert, thick, cloudy and insert marginally. The umbilical cord measures 23.5 cm. in length and averages 1.3 cm. in diameter. The cord inserts at the margin. No true knots or strictures are identified. Cut surface of the umbilical cord reveals 3 vessels. The surface is hilario blue with moderate fibrin deposition and appropriate caliber vessels. The maternal surface is red-brown with focal defects. Sectioning reveals red-brown, spongy parenchyma. No lesions are identified. Kettle Firer sections are submitted in three cassettes as follows: 1- membrane rolls and umbilical cord; 2-3- full thickness sections of placenta. B. Received in formalin labeled "portion of left tube," is a 1.7 cm in length portion of fallopian tube. No fimbria are present. The outer surface is calvert-torres and smooth. Sectioning reveals an unremarkable lumen. Kettle Firer sections are submitted in one cassette. C. Received in formalin labeled "portion of right tube," is a 1.5 cm in length portion of fallopian tube. No fimbria are present. The outer surface is calvert-torres and smooth. Sectioning reveals an unremarkable lumen. Kettle Firer sections are submitted in one cassette. 07/16/2017 saudi07/16/2017
== END 2017-07-16 13:00 | disposition home or self-care (01) | DRG 540 ==
LOC: JLDR 08:00 → J3W 07-12 14:36
PROVIDERS: ADMIT Obstetrics & Gynecology; ATTEND Obstetrics & Gynecology
PROC: 3E0P7VZ Introduction of Hormone into Female Reproductive, Via Natural or Artificial Opening (ICD-10-PCS; 2017-07-09)
PROC: 10D00Z1 Extraction of Products of Conception, Low, Open Approach (ICD-10-PCS; principal; 2017-07-12)
PROC: 0UB70ZZ Excision of Bilateral Fallopian Tubes, Open Approach (ICD-10-PCS; 2017-07-12)
DX: O61.0 Failed medical induction of labor (principal); O16.3 Unspecified maternal hypertension, third trimester; Z22.330 Carrier of Group B streptococcus; Z30.2 Encounter for sterilization; D25.9 Leiomyoma of uterus, unspecified; O34.13 Maternal care for benign tumor of corpus uteri, third trimester; Z3A.38 38 weeks gestation of pregnancy; Z37.0 Single live birth
CPT/HCPCS: 36415; 80048; 81003; 81015; 82565; 82977; 83010; 84450; 84460; 84550; 85025; 85027; 85044; 85610; 85730; 86593; 86850; 86900; 86901; 87081; 87086; 88302-TC; 88307-TC; 90686; 90715; G0008

== ENCOUNTER 2018-06-16 16:54 | Emergency (ER) | payer OTHER ==
[2018-06-16 17:10] VITALS: BMI 25.8
--- NOTE | 2018-06-16 17:20 | PDOC ---
History of Present Illness - General Chief Complaint: Blood Pressure Problem Stated Complaint: HYPERTENSION Time Seen by Provider: 06/16/18 17:07 History Source: Patient - History of Present Illness Initial Comments: 06/16/18 17:48 38 year old female with a PMH of HTN presents with two day h/o headache. Headache is diffuse, progressively worsening, 10/10 and "pressure-like." Patient notes she has a h/o similar headaches 2-3 years previous prior to her HTN diagnosis. Patient states she is on Lisinopril and Metoprolol for her HTN, however she has not taken her medications for 1 month as her Medicaid was cancelled. Patient denies any visual changes, mental status changes but does endorse nausea w/o vomiting. Patient has tried Tylenol with no relief. Patient denies chest pain, shortness of breath. Patient denies fevers/chills, nausea/vomiting, diarrhea/constipation. Patient denies dysuria/hematuria/frequent/urgency. NKDA Surgical: C/S, hysterectomy Social: 1-2 cigarettes daily, denies alcohol, denies marijuana PMD: in [place], cannot recall name As per EMR, patient was evaluated in 2017 for HTN and was started on Labetalol 200 mg BID. Past History - Past Medical History Allergies/Adverse Reactions: Allergies Allergy/AdvReac Type Severity Reaction Status Date / Time No Known Allergies Allergy Verified 06/16/18 17:10 Home Medications: Ambulatory Orders Enalapril Maleate [Vasotec] 20 mg PO DAILY 30 Days #30 tablet 06/16/18 Labetalol HCl 50 mg PO DAILY 06/16/18 Metoprolol Succinate 50 mg PO DAILY 30 Days #30 tab.er.24h 06/16/18 Metoprolol Tartrate 0 mg PO DAILY 06/16/18 Asthma: No Cancer: No COPD: No Diabetes: No Disorders: Yes (fibroids) HTN: Yes (ON LABETALOL AND ASA) Seizures: No Thyroid Disease: No - Reproductive History (#): 4 Para: 3 Therapeutic (s) & number: No Spontaneous : 0 - Immunization History Immunization Up to Date: No - Suicide/Smoking/Psychosocial Hx Smoking History: Never smoked Have you smoked in the past 12 months: No Number of Cigarettes Smoked Daily: 1 Information on smoking cessation initiated: No Hx Alcohol Use: No Drug/Substance Use Hx: No Substance Use Type: None Hx Substance Use Treatment: No Review of Systems - Review of Systems Constitutional: No: Chills, Fever HEENTM: Yes: Eye Pain Respiratory: No: Cough, Shortness of Breath Cardiac (ROS): No: Chest Pain, Lightheadedness, Palpitations ABD/GI: Yes: Nausea. No: Constipated, Diarrhea, Vomiting : No: Burning, Dysuria Neurological: Yes: Headache. No: Numbness, Seizure, Tingling, Tremors, Unsteady Gait, Ataxia, Dizziness *Physical Exam - Vital Signs Last Vital Signs Temp Pulse Resp BP Pulse Ox 99.5 F 72 16 159/106 100 06/16/18 17:07 06/16/18 17:07 06/16/18 17:07 06/16/18 17:07 06/16/18 17:07 - Physical Exam General Appearance: Yes: Nourished, Appropriately Dressed HEENT: positive: EOMI, ARIANNE, Normal Voice, Hearing Grossly Normal Neck: positive: Trachea midline, Supple Respiratory/Chest: positive: Lungs Clear, Normal Breath Sounds. negative: Rales , Rhonchi, Stridor, Wheezing Cardiovascular: positive: S1, S2 Gastrointestinal/Abdominal: positive: Normal Bowel Sounds, Soft Extremity: positive: Normal Capillary Refill, Normal Inspection Neurologic: positive: country manager II-XII NML intact, Fully Oriented, Alert, Normal Mood/ Affect. negative: Confused, Disoriented Medical Decision Making - Medical Decision Making 06/16/18 18:14 38 year old female presents with headache. SiSx c/w headaches prior to her HTN diagnosis. Elevated BP at triage and on repeat exam (150's/100's). No neurological deficits noted on PE. Will give Fiorcet for headache, Labetalol and contact patient's pharmacy for HTN medication regimen. Reassess. 06/16/18 18:44 As per [facility], patient on Metoprolol ER (50 mg QD) and Enalapril (20 mg QD). Will discharge home with 30 day prescription pending symptomatic resolution. 06/16/18 18:48 Patient signed out to Dr. Bone (Resident) and Dr. Asher (Attending). *DC/Admit/Observation/Transfer Diagnosis at time of Disposition: Headache - Prescriptions Prescriptions: Enalapril Maleate [Vasotec] 20 mg PO DAILY 30 Days #30 tablet Metoprolol Succinate 50 mg PO DAILY 30 Days #30 tab.er.24h - Referrals - Patient Instructions - Post Discharge Activity
--- NOTE | 2018-06-16 17:32 | PDOC ---
Attending Attestation - Resident Resident Name: Corinne Rivera - ED Attending Attestation I have performed the following: I have examined & evaluated the patient, The case was reviewed & discussed with the resident, I agree w/resident's findings & plan, Exceptions are as noted - HPI HPI: 06/16/18 18:09 The patient is a 38 year old female, with a significant past medical history of hypertension (ran out of her meds 1 month ago), who presents to the emergency department via ems for intermittent mild headache since Saturday. She states the AMIN is frontal with associated pressure behind eyes. She states her headache feels like her headaches in the past, but it is actually fairly mild currently. pt denies any vision changes, numbness/tingling/weakness, cp, sob, abd pain, n/v , dysuria, diarrhea, melena, bpr. - Physicial Exam PE: 06/16/18 18:17 GENERAL: The patient is awake, alert, and fully oriented, Nontoxic - in no acute distress. HEAD: Normocephalic, atraumatic. EYES: extraocular movements intact, sclera anicteric, conjunctiva clear. LUNGS: Breath sounds equal, clear to auscultation bilaterally. No wheezes, no rhonchi, no rales. HEART: Regular rate and rhythm, normal S1 and S2 without murmur, rub or gallop. ABDOMEN: Soft, nontender, normoactive bowel sounds. No guarding, no rebound. No CVA tenderness EXTREMITIES: Normal range of motion, no edema. NEUROLOGICAL: No facial assymetry, Normal speech, PSYCH: Normal mood, normal affect. SKIN: Warm, Dry, normal turgor, - Medical Decision Making 06/16/18 17:32 38y F presents with mild headache and noted to be hypertensive but has been off her medications for probably 1 month. Patient's headache is improved, no focal neurologic complaints. Will see if can obtain a list of the patient's medications will give patient a prescription for these medicines and will have her follow-up with her PMD as an outpatient 06/17/18 18:59 pts bp improved will dc with outpatient mangement
[2018-06-16] MEDS ORDERED: ACETAMINOPHEN/CAFFEINE/BUTALBITAL 1 TAB PO ONE (17:37)
[2018-06-16] MEDS ORDERED: LABETALOL HCL 200 MG TABLET (FP) PO ONE (18:11)
[2018-06-16] MEDS ORDERED: ACETAMINOPHEN/CAFFEINE/BUTALBITAL 1 TAB ONE (18:40)
[2018-06-16] MEDS ORDERED: LABETALOL HCL 100 MG TABLET (FP) ONE (18:41)
[2018-06-16] MEDS ORDERED: ENALAPRIL MALEATE 10 MG TABLET (FP) PO ONE (18:42)
--- NOTE | 2018-06-16 18:50 | PDOC ---
*Physical Exam - Vital Signs Last Vital Signs Temp Pulse Resp BP Pulse Ox 98.4 F 66 18 150/104 99 06/16/18 17:57 06/16/18 17:57 06/16/18 17:57 06/16/18 17:57 06/16/18 17:57 <Corinne Rivera - Last Filed: 06/16/18 19:26> - Vital Signs Last Vital Signs Temp Pulse Resp BP Pulse Ox 98.4 F 66 18 150/104 99 06/16/18 17:57 06/16/18 17:57 06/16/18 17:57 06/16/18 17:57 06/16/18 17:57 - Physical Exam Comments: 06/16/18 19:28 GENERAL: Awake, alert, and fully oriented, in no acute distress HEAD: No signs of trauma, normocephalic, atraumatic EYES: PERRLA, EOMI, sclera anicteric, conjunctiva clear HEART: Regular rate and rhythm, normal S1 and S2, no murmurs, rubs or gallops, peripheral pulses normal and equal bilaterally. EXTREMITIES: Normal inspection, Normal range of motion, no edema. No clubbing or cyanosis. NEUROLOGICAL: Cranial nerves II through XII grossly intact. Normal speech, normal gait, no focal sensorimotor deficits SKIN: Warm, Dry, normal turgor, no rashes or lesions noted. <Tee Bone - Last Filed: 06/16/18 19:28> ED Treatment Course - Medications Given in the ED: ED Medications Discontinued Medications Generic Name Dose Route Start Last Admin Trade Name Freq PRN Reason Stop Dose Admin Acetaminophen/Butalbital/Caffeine 1 tablet 06/16/18 17:37 06/16/18 18:41 Fioricet - PO 06/16/18 17:38 1 tablet ONCE ONE Administration Enalapril Maleate 20 mg 06/16/18 18:42 06/16/18 19:18 Vasotec - PO 06/16/18 18:43 Not Given ONCE ONE Labetalol HCl 200 mg 06/16/18 18:11 06/16/18 18:42 Normodyne - PO 06/16/18 18:12 200 mg ONCE ONE Administration Metoprolol Succinate 50 mg 06/16/18 18:41 06/16/18 19:17 Toprol Xl - PO 06/16/18 18:42 Not Given ONCE ONE <Corinne Rivera - Last Filed: 06/16/18 19:26> - Medications Given in the ED: ED Medications Discontinued Medications Generic Name Dose Route Start Last Admin Trade Name Harsh PRN Reason Stop Dose Admin Acetaminophen/Butalbital/Caffeine 1 tablet 06/16/18 17:37 06/16/18 18:41 Fioricet - PO 06/16/18 17:38 1 tablet ONCE ONE Administration Labetalol HCl 200 mg 06/16/18 18:11 06/16/18 18:42 Normodyne - PO 06/16/18 18:12 200 mg ONCE ONE Administration <Tee Bone - Last Filed: 06/16/18 19:28> Medical Decision Making - Medical Decision Making 06/16/18 19:[address] Rivera. Patient is 38F with history of HTN here today with headache. Patient reports feeling better. Given BP medications to take at home. Will discharge home. <Tee Bone - Last Filed: 06/16/18 19:28> *DC/Admit/Observation/Transfer <Corinne Rivera - Last Filed: 06/16/18 19:26> <Tee Bone - Last Filed: 06/16/18 19:28> Diagnosis at time of Disposition: Headache - Prescriptions Prescriptions: Enalapril Maleate [Vasotec] 20 mg PO DAILY 30 Days #30 tablet Metoprolol Succinate 50 mg PO DAILY 30 Days #30 tab.er.24h - Patient Instructions Printed Discharge Instructions: DI for High Blood Pressure Additional Instructions: A prescription has been called to your pharmacy. Please restart your blood pressure medications as soon as your insurance changes are resolved. Follow up with your primary care doctor in the next 2-3 days. Return to the Emergency Department for any new/worsening/concerning symptoms.
[2018-06-16 19:37] VITALS: BP 142/92; PULSE 70; TEMP 98.2
== END 2018-06-16 19:37 | disposition home or self-care (01) ==
LOC: JER 16:54
DX: R51 Headache (principal)
CPT/HCPCS: 99284-25

== ENCOUNTER 2020-09-25 14:22 | Emergency (ER) | payer OTHER ==
[2020-09-25 14:32] VITALS: BP 155/102; PULSE 98; TEMP 97.8; BMI 25.8
[2020-09-25] MEDS ORDERED: AZITHROMYCIN 500 MG TABLET PO ONE (15:42)
[2020-09-25] MEDS ORDERED: AZITHROMYCIN 250 MG TABLET ONE (16:13)
[2020-09-25] MEDS ORDERED: cefTRIAXone SODIUM 1 GM VIAL ONE (16:13)
== END 2020-09-25 17:05 | disposition home or self-care (01) ==
LOC: JERFT 14:22
DX: Z20.2 Contact with and (suspected) exposure to infections with a predominantly sexual mode of transmission (principal); M17.0 Bilateral primary osteoarthritis of knee
CPT/HCPCS: 36415; 73562-TC-LT-FY; 73562-TC-RT-FY; 87491; 87591; 99284-25

== ENCOUNTER 2021-04-29 20:33 | Emergency (ER) | payer OTHER ==
[2021-04-29 20:47] VITALS: BP 130/87; PULSE 94; TEMP 97.9; BMI 27.3
[2021-04-29 22:45] LABS: EPI CELLS 12 /uL (0-25.1); HCG,QUALITATIVE URINE Negative; HYALINE CASTS 6 /uL (0-3.1); URINE APPEARANCE CLEAR; URINE BACTERIA 368 /uL (0-1359); URINE BILIRUBIN NEGATIVE (NEGATIVE); URINE COLOR YELLOW; URINE GLUCOSE (UA) NEGATIVE (NEGATIVE); URINE KETONE TRACE (NEGATIVE); URINE LEUK ESTERASE 1+ (NEGATIVE); URINE NITRITE NEGATIVE (NEGATIVE); URINE PROTEIN NEGATIVE (NEGATIVE); URINE RBC 11 /uL (0-23.9); URINE WBC 254 /uL (0-25.8)
[2021-04-29 22:54] LABS: BASO % 0.9 % (0-2.0); EOS % 5.4 % (0-4.5); HEMATOCRIT 37.4 % (32.4-45.2); HEMOGLOBIN 12.5 GM/dL (10.7-15.3); LYMPH % 34.6 % (8-40); MCHC 33.5 g/dl (32.0-36.0); MEAN CELL VOLUME 95.4 fl (80-96); MEAN PLT VOLUME 7.5 fl (7.5-11.1); MONO % 7.7 % (3.8-10.2); NEUT % 51.4 % (42.8-82.8); PLATELET COUNT 270 10^3/uL (134-434); RBC 3.92 M/mm3 (3.60-5.2); RDW 13.9 % (11.6-15.6); WHITE BLOOD COUNT 5.6 K/mm3 (4.0-10.0)
[2021-04-29 23:06] LABS: INR 0.92 (0.83-1.09); PROTHROMBIN TIME (PATIENT) 11.4 SEC (9.7-13.0)
[2021-04-29 23:08] LABS: ACTIVATED PTT 27.5 SECONDS (25.2-36.5)
[2021-04-29 23:15] LABS: ALBUMIN 3.9 g/dl (3.4-5.0); BLOOD UREA NITROGEN 13.6 mg/dL (7-18); CALCIUM 8.5 mg/dL (8.5-10.1)
[2021-04-29 23:18] LABS: CREATININE 0.9 mg/dL (0.55-1.3)
[2021-04-29 23:19] LABS: BILIRUBIN,TOTAL 0.2 mg/dL (0.2-1); TOT PROT 7.1 g/dl (6.4-8.2)
== END 2021-04-29 23:44 | disposition left against medical advice (07) ==
LOC: JER 20:33
DX: N93.9 Abnormal uterine and vaginal bleeding, unspecified (principal)
CPT/HCPCS: 36415; 80053; 81003; 84703; 85025; 85610; 85730; 86850; 86900; 86901; 87086; 99284-25